=== PATIENT | female | born 1960 | race Caucasian/White ===

== ENCOUNTER 2020-01-24 16:32 | Observation (INO) ==
[2020-01-24] MEDS ORDERED: 0.9 % Sodium Chloride 1,000 ML IVC ONE (17:55)
[2020-01-24] MEDS ORDERED: Pantoprazole 80 MG in 0.9 % Sodium Chloride 50 ML IVPB ONE (17:55)
[2020-01-24 18:06] LABS: Basophils % 0.4 %; Eosinophils % 0.7 %; Hematocrit 44.3 % (35.3-44.9); Hemoglobin 14.9 g/dL (11.5-15.4); Immature Granulocytes % 0.4 % (0-4); Lymphocytes % 17.7 %; Mean Corpuscular HGB Conc 33.6 g/dL (31.6-35.5); Mean Corpuscular Hemoglobin 29.7 pg (28.0-33.3); Mean Corpuscular Volume 88.2 fL (83.0-100.0); Mean Platelet Volume 10.3 fL (9.4-12.4); Monocytes # 0.5 K/mcL (0.0-1.3); Monocytes % 8.2 %; Neutrophils # 4.1 K/mcL (1.6-8.9); Platelet Count 147 K/mcL (140-400); Red Blood Count 5.02 M/mcL (3.82-4.97); Red Cell Distribution Width 11.9 % (11.5-14.5); Segmented Neutrophils % 72.6 %; White Blood Count 5.6 K/mcL (4.3-11.1)
[2020-01-24 18:29] LABS: Alanine Aminotransferase 73 Units/L (7-52); Albumin 3.9 g/dL (3.5-5.7); Albumin/Globulin Ratio 1.2 (1.1-2.2); Alkaline Phosphatase 159 Units/L (34-104); Aspartate Amino Transferase 37 Units/L (13-39); BUN/Creatinine Ratio 21 (6-26); Bilirubin,Direct 0.5 mg/dL (0.0-0.2); Bilirubin,Indirect 0.8 mg/dL (0.0-1.0); Bilirubin,Total 1.3 mg/dL (0.3-1.0); Blood Urea Nitrogen 14 mg/dL (6-20); Calcium 9.5 mg/dL (8.6-10.3); Carbon Dioxide 24 mEq/L (23-29); Chloride 95 mEq/L (98-107); Globulin 3.3 g/dL (2.4-3.5); Glucose 314 mg/dL (70-105); Osmolality,Calculated 276 (280-300); Sodium 127 mEq/L (136-145); Total Protein 7.2 g/dL (6.4-8.9); Troponin I < 0.03 ng/mL (< 0.04); eGFR For African Americans > 60 (> 60); eGFR For Non-African Americans > 60 (> 60)
[2020-01-24] MEDS ORDERED: Naloxone 0.4 MG/ML INJ IVP PRN ×3 (20:58→21:39)
[2020-01-24] MEDS ORDERED: *HR* Dextrose 50 % in Water (Syg) 50 ML SYRINGE IVP PRN ×2 (21:00→21:44)
[2020-01-24] MEDS ORDERED: Dextrose Gel 15 GM/37.5 ML TUBE PO PRN ×4 (21:00→21:44)
[2020-01-24] MEDS ORDERED: D5% in Water 1,000 ML IVC PRN ×2 (21:00→21:44)
[2020-01-24 21:24] LABS: Lipase 9 Units/L (11-82)
[2020-01-24 21:32] LABS: Creatine Kinase 29 Units/L (30-223)
[2020-01-24 21:40] LABS: Estimated Average Glucose 332 mg/dl
[2020-01-24] MEDS ORDERED: Ringers Solution, Lactated 1,000 ML IVC SCH (21:45)
[2020-01-24] MEDS ORDERED: Nicotine 2 MG GUM BC PRN (21:46)
[2020-01-24 22:01] LABS: Bilirubin,Urine Small (Negative); Blood,Urine Negative (Negative); Clarity,Urine Clear (Clear); Color,Urine Dark Yellow (Yellow); Glucose,Urine (UA) >=1000 mg/dL (Normal); Ketones,Urine 15 mg/dL (Negative); Leukocyte Esterase,Urine Negative (Negative); Nitrite,Urine Negative (Negative); PH,Urine 5.5 pH Units (5.0-8.0); Protein,Urine Negative (Neg-Trace); Specific Gravity,Urine > 1.030 (1.010-1.025); Urobilinogen,Urine Normal (Normal)
[2020-01-24] MEDS: Nicotine 14 MG PATCH.TD24 TD SCH (22:45)
[2020-01-24] MEDS: Insulin LISPRO 300 UNITS/3 ML VIAL SQ SCH (22:47)
[2020-01-25] MEDS ORDERED: Insulin LISPRO 300 UNITS/3 ML VIAL SQ SCH
[2020-01-25] MEDS: Insulin LISPRO 300 UNITS/3 ML VIAL SQ SCH ×4 (04:37→17:43)
[2020-01-25 04:41] LABS: Immature Granulocytes % 0.2 % (0-4); Mean Corpuscular HGB Conc 33.9 g/dL (31.6-35.5)
[2020-01-25 04:43] LABS: Basophils % 0.2 %; Eosinophils # 0.1 K/mcL (0.0-0.6); Eosinophils % 1.1 %; Hematocrit 40.1 % (35.3-44.9); Hemoglobin 13.6 g/dL (11.5-15.4); Immature Platelets 3.4 % (1.1-6.1); Lymphocytes % 32.9 %; Mean Corpuscular Volume 88.5 fL (83.0-100.0); Mean Platelet Volume 10.2 fL (9.4-12.4); Monocytes # 0.6 K/mcL (0.0-1.3); Neutrophils # 2.3 K/mcL (1.6-8.9); Platelet Count 139 K/mcL (140-400); Red Blood Count 4.53 M/mcL (3.82-4.97); Red Cell Distribution Width 11.9 % (11.5-14.5); Segmented Neutrophils % 52.6 %; White Blood Count 4.4 K/mcL (4.3-11.1)
[2020-01-25 04:44] LABS: INR 1.2; Prothrombin Time 13.6 Seconds (9.4-12.1)
[2020-01-25 05:02] LABS: Alanine Aminotransferase 50 Units/L (7-52); Albumin 3.5 g/dL (3.5-5.7); Albumin/Globulin Ratio 1.3 (1.1-2.2); Alkaline Phosphatase 129 Units/L (34-104); Aspartate Amino Transferase 22 Units/L (13-39); BUN/Creatinine Ratio 20 (6-26); Bilirubin,Total 0.8 mg/dL (0.3-1.0); Blood Urea Nitrogen 12 mg/dL (6-20); Calcium 8.9 mg/dL (8.6-10.3); Carbon Dioxide 28 mEq/L (23-29); Chloride 100 mEq/L (98-107); Chol/HDL Ratio 9.6 (0-4.9); Cholesterol 191 mg/dL (< 200); Gamma Glutamyl Transpeptidase 264 Units/L (7-64); Globulin 2.7 g/dL (2.4-3.5); Glucose 221 mg/dL (70-105); HDL Cholesterol 20 mg/dL (40-59); LDL Cholesterol,Calculated 113 mg/dL (0-99); Magnesium 1.8 mg/dL (1.6-2.6); Osmolality,Calculated 283 (280-300); Phosphorous 2.8 mg/dL (2.7-4.5); Potassium 3.5 mEq/L (3.5-5.1); Sodium 133 mEq/L (136-145); Total Protein 6.2 g/dL (6.4-8.9); Triglycerides 292 mg/dL (< 150); eGFR For African Americans > 60 (> 60); eGFR For Non-African Americans > 60 (> 60)
[2020-01-25 05:06] LABS: Lymphocytes # 1.5 K/mcL (0.6-4.6); Platelet Estimate Normal (Normal)
[2020-01-25] MEDS ORDERED: 0.9 % Sodium Chloride 1,000 ML IVC SCH (06:00)
[2020-01-25] MEDS: *HR* Heparin 5,000 UNIT/ML VIAL SQ SCH ×2 (06:09→17:43)
[2020-01-25] MEDS: Nicotine 14 MG PATCH.TD24 TD SCH (09:55)
[2020-01-25 10:56] LABS: BUN/Creatinine Ratio 21 (6-26); Blood Urea Nitrogen 11 mg/dL (6-20); Calcium 8.6 mg/dL (8.6-10.3); Carbon Dioxide 28 mEq/L (23-29); Chloride 101 mEq/L (98-107); Glucose 196 mg/dL (70-105); Osmolality,Calculated 281 (280-300); Potassium 3.6 mEq/L (3.5-5.1); Sodium 133 mEq/L (136-145); eGFR For African Americans > 60 (> 60); eGFR For Non-African Americans > 60 (> 60)
[2020-01-25] MEDS ORDERED: Lidocaine -MPF 4% 5 ML AMPUL ONE (13:06)
[2020-01-25] MEDS ORDERED: *HR* Midazolam HCl 2 MG/2 ML VIAL ONE (13:06)
[2020-01-25] MEDS ORDERED: *HR* FentaNYL (PF) 100 MCG/2 ML VIAL ONE ×2 (13:07→13:45)
[2020-01-25] MEDS ORDERED: *HR* Propofol 200 MG/20 ML VIAL IVP ONE (13:08)
[2020-01-25] MEDS ORDERED: Dexamethasone 4 MG/ML VIAL ONE (13:12)
[2020-01-25] MEDS ORDERED: *HR* Rocuronium Bromide 50 MG/5 ML VIAL ONE (13:12)
[2020-01-25] MEDS ORDERED: Indomethacin 50 MG SUPP.RECT RC ONE (14:39)
[2020-01-25] MEDS: *HR* Promethazine 25 MG/ML VIAL IVP PRN ×2 (16:25→16:40)
[2020-01-25] MEDS ORDERED: *HR* Labetalol 20 MG/4 ML SYRINGE IVP PRN (16:51)
[2020-01-26] MEDS: Insulin LISPRO 300 UNITS/3 ML VIAL SQ SCH ×2 (00:38→05:35)
[2020-01-26] MEDS: *HR* Heparin 5,000 UNIT/ML VIAL SQ SCH (05:34)
[2020-01-26 06:47] LABS: Eosinophils % 0.1 %; Hematocrit 41.1 % (35.3-44.9); Immature Granulocytes % 0.3 % (0-4); Lymphocytes # 1.5 K/mcL (0.6-4.6); Lymphocytes % 21.1 %; Mean Corpuscular HGB Conc 34.1 g/dL (31.6-35.5); Mean Corpuscular Hemoglobin 29.9 pg (28.0-33.3); Mean Corpuscular Volume 87.8 fL (83.0-100.0); Mean Platelet Volume 10.5 fL (9.4-12.4); Monocytes # 0.6 K/mcL (0.0-1.3); Monocytes % 8.2 %; Platelet Count 174 K/mcL (140-400); Red Blood Count 4.68 M/mcL (3.82-4.97); Red Cell Distribution Width 11.9 % (11.5-14.5); Segmented Neutrophils % 70.3 %
[2020-01-26 07:03] LABS: White Blood Count 7.1 K/mcL (4.3-11.1)
[2020-01-26 07:08] LABS: Alanine Aminotransferase 40 Units/L (7-52); Albumin 3.5 g/dL (3.5-5.7); Albumin/Globulin Ratio 1.3 (1.1-2.2); Alkaline Phosphatase 120 Units/L (34-104); Aspartate Amino Transferase 20 Units/L (13-39); BUN/Creatinine Ratio 24 (6-26); Bilirubin,Direct 0.2 mg/dL (0.0-0.2); Bilirubin,Indirect 0.3 mg/dL (0.0-1.0); Bilirubin,Total 0.5 mg/dL (0.3-1.0); Blood Urea Nitrogen 14 mg/dL (6-20); Calcium 9.2 mg/dL (8.6-10.3); Carbon Dioxide 25 mEq/L (23-29); Chloride 99 mEq/L (98-107); Gamma Glutamyl Transpeptidase 225 Units/L (7-64); Globulin 2.7 g/dL (2.4-3.5); Glucose 275 mg/dL (70-105); Osmolality,Calculated 288 (280-300); Potassium 4.1 mEq/L (3.5-5.1); Sodium 134 mEq/L (136-145); Total Protein 6.2 g/dL (6.4-8.9); eGFR For African Americans > 60 (> 60); eGFR For Non-African Americans > 60 (> 60)
[2020-01-26] MEDS: Nicotine 14 MG PATCH.TD24 TD SCH (08:49)
[2020-01-26 10:36] VITALS: BP 142/79
[2020-01-26] MEDS ORDERED: *HR* HYDROcodone/Acet 5/325 mg TABLET PO PRN (11:06)
[2020-01-26] MEDS ORDERED: Insulin LISPRO 300 UNITS/3 ML VIAL SQ SCH ×3 (11:30→21:00)
[2020-01-27 11:13] LABS: ANA IgG by ELISA NONE DETECTED (None Detected)
[2020-01-27 11:14] LABS: Serine Protease-3 Antibody 0 AU/mL (0-19); Smooth Muscle Ab Titer IgG 1:20 (<1:20)
== END 2020-01-26 14:20 | disposition home or self-care (01) ==
LOC: 3ANU 16:32 → EMEROOARM 16:32 → SUATTDRO 20:58 → 3ANU 21:40
PROVIDERS: ADMIT Internal Medicine; ATTEND Internal Medicine